=== PATIENT | female | born 1995 | race Caucasian/White ===

== ENCOUNTER 2017-06-28 19:59 | Emergency (ER) | payer BC, MEDICAID ==
[~2017-06-28] VITALS: Ht 160 cm; Wt 63.5 kg
[2017-06-29] MEDS ORDERED: AZITHROMYCIN 250 MG TABLET PO ONE (00:30)
[2017-06-29] MEDS ORDERED: predniSONE 20 MG TABLET PO ONE (00:30)
--- NOTE | 2017-06-29 00:37 | NUR ---
Patient discharged to home in stable conditon. Written and verbal after care instructions given. Patient verbalizes understanding of instructions.
[2017-06-29] MEDS ORDERED: predniSONE 10 MG TABLET ONE (00:41)
[2017-06-29] MEDS ORDERED: predniSONE 50 MG TABLET ONE (00:41)
[2017-06-29] MEDS ORDERED: AZITHROMYCIN 250 MG TABLET ONE (00:41)
== END 2017-06-29 00:37 | disposition home or self-care (01) ==
LOC: ER 19:59
DX: I88.9 Nonspecific lymphadenitis, unspecified (principal)
CPT/HCPCS: 99283; A4663; J7512 ×2; Q0144

== ENCOUNTER 2017-10-17 16:53 | Emergency (ER) | payer MEDICAID ==
[~2017-10-17] VITALS: Ht 160 cm; Wt 63.5 kg
--- NOTE | 2017-10-17 20:00 | NUR ---
PT C/O PAIN ON URINATION AND INTERMITTEN CRAMPING ABD PAIN X 3 DAYS.
--- NOTE | 2017-10-17 21:00 | NUR ---
PT RESTING COMFORTABLY IN CHAIR. NO DISTRESS NOTED
[2017-10-17 21:57] LABS: *BILIRUBIN,URIN NEGATIVE (NEGATIVE); *BLOOD, URINE NEGATIVE (NEGATIVE); *CLARITY,URINE CLEAR (CLEAR); *COLOR,URINE YELLOW (YELLOW); *KETONES,URINE NEGATIVE (NEGATIVE); *PROTEIN,URINE NEGATIVE (NEGATIVE); LEUKOCYTE ESTERASE ,URINE NEGATIVE (NEGATIVE); NITRITE, URINE NEGATIVE (NEGATIVE); UGLUCOSE NEGATIVE (NEGATIVE)
[2017-10-17 22:06] LABS: *URINE HCG, QUAL NEGATIVE (NEGATIVE); BACTERIA,URINE FEW /HPF (NONE SEEN); SQUAMOUS EPITHELIAL CELL,UR MODERATE /HPF (NONE SEEN); WBC,URINE 0-3 /HPF (0-3)
--- NOTE | 2017-10-17 22:16 | NUR ---
W/ PT FOR MSE
--- NOTE | 2017-10-17 23:45 | NUR ---
Patient discharged to home in stable conditon. Written and verbal after care instructions given. Patient verbalizes understanding of instructions. Pt ambulated w/ steady gait. Took all belongings
[2017-10-18 02:06] VITALS: BP 113/70
== END 2017-10-17 23:50 | disposition home or self-care (01) ==
LOC: ER 16:54
DX: N39.0 Urinary tract infection, site not specified (principal); I88.9 Nonspecific lymphadenitis, unspecified
CPT/HCPCS: 81001; 84703; 99284; A4663

== ENCOUNTER 2019-01-12 10:13 | Emergency (ER) | payer MEDICAID, OTHER ==
[~2019-01-12] VITALS: Ht 160 cm; Wt 63.5 kg
--- NOTE | 2019-01-12 11:01 | NUR ---
Dr. Romo here to see pt for MSE.
[2019-01-12 11:36] LABS: *MONOTEST NEGATIVE (NEGATIVE)
--- NOTE | 2019-01-12 11:48 | NUR ---
Patient discharged to home in stable conditon. Written and verbal after care instructions given. Patient verbalizes understanding of instructions.
--- NOTE | 2019-01-16 18:33 | NUR ---
Pt Throat Cx came back positive for Strep Pyogenes group A, Results were discussed with , patient was contacted. patient stated that the next day she went to her PCP and was diagnosed and test positive with strep. pt was given antibiotic. patient currently feels better and per patients her symptoms have resolved.
== END 2019-01-12 11:48 | disposition home or self-care (01) ==
LOC: ER 10:13
DX: J20.8 Acute bronchitis due to other specified organisms (principal); B97.89 Other viral agents as the cause of diseases classified elsewhere; H92.02 Otalgia, left ear
CPT/HCPCS: 36415; 86308; 86403; 87070; A4663